=== PATIENT | male | born 1975 | race Caucasian/White ===

== ENCOUNTER 2018-10-03 08:07 | Emergency (ER) | payer BC, OTHER ==
[2018-10-03 08:22] VITALS: BP 125/63
--- NOTE | 2018-10-03 08:55 | UC ---
General HPI - HPI Summary HPI Summary: Here for concern of lesion on fingertip. Left 4th digit on the tip - Started about 3 weeks ago. Initially thought it was a splinter and then started picking at it and it become more raised and bleeds all the time. No trauma. Mildly painful and occasionally itches. Otherwise feeling well. No drainage from lesion. meds; Reviewed - History of Current Complaint Chief Complaint: UCUpperExtremity Stated Complaint: SKIN COMPLAINT Time Seen by Provider: 10/03/18 08:45 Pain Intensity: 6 - Allergy/Home Medications Allergies/Adverse Reactions: Allergies Allergy/AdvReac Type Severity Reaction Status Date / Time Seasonal Allergies Allergy Intermediate Congestion Uncoded 09/30/13 19:52 Home Medications: Home Medications Meloxicam 7.5 mg PO DAILY WITH MEAL 10/03/18 [History Confirmed 10/03/18] PMH/Surg Hx/FS Hx/Imm Hx Previously Healthy: Yes - Surgical History Surgical History: Yes Surgery Procedure, Year, and Place: HERNIA REPAIR, SINUS SEPTUM, rt shoulder surgery - Social History Alcohol Use: Occasionally Alcohol Amount: 1-2x week Substance Use Type: None Smoking Status (MU): Never Smoked Tobacco Review of Systems All Other Systems Reviewed And Are Negative: Yes Physical Exam Triage Information Reviewed: Yes Appearance: Well-Appearing Vital Signs: Initial Vital Signs Temp 98.1 F 10/03/18 08:17 Pulse 61 10/03/18 08:17 Resp 18 10/03/18 08:17 BP 125/63 10/03/18 08:17 Pulse Ox 96 10/03/18 08:17 Vital Signs Reviewed: Yes Skin Exam: Other - 1 cm raised vascular erythematous annular lesion on tip of right 4th digit - good cap refill. Sensation and movement intact. Mildly painful with palpation. Does not carlos Course/Dx - Course Course Of Treatment: This is a 43 yr old with a lesion on tip of 4th digit Unclear the etiology I suspect pyogenic granuloma Plan Recommend follow up with a [employer] warehouse supervisor for further evaluation of lesion Keep it covered when active No signs of infection - Diagnoses Provider Diagnosis: Pyogenic granuloma Discharge - Sign-Out/Discharge Documenting (check all that apply): Patient Departure All imaging exams completed and their final reports reviewed: No Studies - Discharge Plan Condition: Good Disposition: HOME Referrals: Santo Cox MD [Primary Care Provider] - Additional Instructions: Recommend follow up with a [employer] supervisor for further evaluation of lesion Keep it covered when active No signs of infection - Billing Disposition and Condition Condition: GOOD Disposition: Home
[2018-10-03] MEDS ORDERED: Mupirocin 2% OINT* TUBE TOPICAL ONE (09:07)
== END 2018-10-03 09:16 | disposition home or self-care (01) ==
LOC: UCEAST 08:07
DX: L98.0 Pyogenic granuloma (principal)
CPT/HCPCS: 99212; G0463